=== PATIENT | female | born 1980 | race Hispanic/Latino ===

== ENCOUNTER 2018-12-07 23:13 | Emergency (ER) | payer MEDICAID, OTHER ==
--- NOTE | 2018-12-08 03:57 | Emergency Department Report ---
ED Psych HPI - General Chief Complaint: Psych Stated Complaint: PSYCH EVAL Time Seen by Provider: 12/08/18 03:40 Source: patient Mode of arrival: Ambulatory - History of Present Illness Initial Comments: Patient is 38 years old female with history of depression. Patient presented to the ER stating that she is very depressed and she has thoughts of hurting herself. Patient stated that she feel a lot she does not want to live anymore. Patient stated that R son brother who is 17 years old just committed suicide. Patient stated that she had history of suicidal attempt before slitting her wrist. Patient denied any homicidal ideation. No dictating or visual hallucination. MD Complaint: suicidal ideation, feels depressed -: days(s) Associated Psychiatric Symptoms: depression, suicidal ideation History of same: Yes Quality: constant Associated Symptoms: denies other symptoms Treatments Prior to Arrival: none If Self Harm: admits thoughts of - Related Data Previous Rx's Medication Instructions Recorded Last Taken Type Cyclobenzaprine [Flexeril] 10 mg PO TID PRN #15 tablet 04/10/16 Unknown Rx Ibuprofen [Motrin] 800 mg PO Q8HR PRN #15 tablet 04/10/16 Unknown Rx Allergies Allergy/AdvReac Type Severity Reaction Status Date / Time No Known Allergies Allergy Verified 04/09/16 17:50 ED Review of Systems ROS: Stated complaint: PSYCH EVAL Other details as noted in HPI Comment: All other systems reviewed and negative Constitutional: denies: chills, fever Respiratory: denies: cough, orthopnea, shortness of breath, SOB with exertion, SOB at rest Cardiovascular: denies: chest pain, palpitations Gastrointestinal: denies: abdominal pain, nausea Neurological: denies: headache, numbness, paresthesias, confusion Psychiatric: depression, suicidal thoughts. denies: auditory hallucinations, visual hallucinations, homicidal thoughts ED Past Medical Hx - Past Medical History Previous Medical History?: Yes Hx Hypertension: Yes - Surgical History Past Surgical History?: Yes Additional Surgical History: x1 - Social History Smoking Status: Never Smoker Substance Use Type: None - Medications Home Medications: Home Medications Medication Instructions Recorded Confirmed Last Taken Type Cyclobenzaprine [Flexeril] 10 mg PO TID PRN #15 tablet 04/10/16 Unknown Rx Ibuprofen [Motrin] 800 mg PO Q8HR PRN #15 tablet 04/10/16 Unknown Rx ED Physical Exam - General Limitations: No Limitations General appearance: alert, in no apparent distress, other (depressed) - Head Head exam: Present: atraumatic, normocephalic, normal inspection - Eye Eye exam: Present: normal appearance - ENT ENT exam: Present: normal exam, normal orophraynx, mucous membranes moist - Neck Neck exam: Present: normal inspection, full ROM. Absent: tenderness, menin gismus, lymphadenopathy, thyromegaly - Respiratory Respiratory exam: Present: normal lung sounds bilaterally - Cardiovascular Cardiovascular Exam: Present: regular rate, normal rhythm, normal heart sounds - GI/Abdominal GI/Abdominal exam: Present: soft, normal bowel sounds. Absent: distended, tenderness, guarding, rebound, rigid, organomegaly, mass, bruit, pulsatile mass, hernia - Extremities Exam Extremities exam: Present: normal inspection, full ROM, normal capillary refill - Back Exam Back exam: Present: normal inspection, full ROM. Absent: CVA tenderness (R), CVA tenderness (L), muscle spasm, paraspinal tenderness, vertebral tenderness - Neurological Exam Neurological exam: Present: alert, oriented X3, CN II-XII intact, normal gait - Psychiatric Psychiatric exam: Present: depressed, suicidal ideation. Absent: agitated, anxious, flat affect, manic, homicidal ideation - Skin Skin exam: Present: warm, intact, normal color ED Course Vital Signs 12/07/18 23:47 Temperature 98.6 F Pulse Rate 95 H Respiratory 18 Rate Blood Pressure 220/139 O2 Sat by Pulse 95 Oximetry Critical care attestation.: If time is entered above; I have spent that time in minutes in the direct care of this critically ill patient, excluding procedure time. ED Disposition Clinical Impression: Depression, Suicidal ideation Disposition: DC/TX-65 PSY HOSP/PSY UNIT Is pt being admited?: No Condition: Stable Referrals: PRIMARY CARE, [Primary Care Provider] - 3-5 Days
[2018-12-08 04:13] LABS: Basophils # (Auto) 0.1 K/mm3 (0.0-0.1); Basophils % (Auto) 0.9 % (0.0-1.8); Eosinophils # (Auto) 0.1 K/mm3 (0.0-0.4); Eosinophils % (Auto) 1.5 % (0.0-4.3); Hematocrit 30.6 % (30.3-42.9); Hemoglobin 9.3 gm/dl (10.1-14.3); Lymphocytes # (Auto) 2.6 K/mm3 (1.2-5.4); Lymphocytes % (Auto) 35.5 % (13.4-35.0); Mean Corpuscular HGB Conc 30 % (30-34); Monocytes # (Auto) 0.4 K/mm3 (0.0-0.8); Monocytes % (Auto) 5.5 % (0.0-7.3); Platelet Count 336 K/mm3 (140-440); Red Blood Count 4.37 M/mm3 (3.65-5.03); Red Cell Distribution Width 17.7 % (13.2-15.2)
[2018-12-08 04:14] LABS: Mean Corpuscular Volume 70 fl (79-97)
[2018-12-08 04:21] LABS: BUN/Creatinine Ratio 20; Blood Urea Nitrogen 12 mg/dL (7-17); Calcium 8.9 mg/dL (8.4-10.2); Hemolysis Index 3
[2018-12-08 05:39] LABS: Benzodiazepines Screen,Urine PRESUMPTIVE NEGATIVE; Cannabinoid Screen,Urine PRESUMPTIVE NEGATIVE; Cocaine Screen,Urine PRESUMPTIVE NEGATIVE; Methadone Screen,Urine PRESUMPTIVE NEGATIVE; Opiate Screen,Urine PRESUMPTIVE NEGATIVE
[2018-12-08 05:43] LABS: Bacteria,Urine 4+ /HPF (Negative); Bilirubin,Urine NEG (Negative); Blood,Urine MOD (Negative); Calcium Oxalate Crystals,Urine 3+; Color,Urine Amber (Yellow)
[2018-12-08 05:50] LABS: Amphetamine Screen,Urine PRESUMPTIVE POSITIVE
[2018-12-09] MEDS: NORVASC PO SCH (10:45)
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
[2018-12-09] MEDS: ZOLOFT PO SCH (14:00)
[2018-12-09] MEDS ORDERED: CATAPRES PO ONE (14:34)
[2018-12-10] MEDS: NORVASC PO SCH (09:32)
[2018-12-10] MEDS: ZOLOFT PO SCH (09:33)
[2018-12-10 11:02] LABS: Bacteria,Urine 4+ /HPF (Negative); Bilirubin,Urine NEG (Negative); Blood,Urine MOD (Negative); Color,Urine Yellow (Yellow); Protein,Urine <15 mg/dL mg/dL (Negative); Urobilinogen,Urine < 2.0 mg/dL (<2.0)
[2018-12-10 11:03] LABS: HCG Qualitative,Urine Negative (Negative); WBC,Urine > 182.0 /HPF (0.0-6.0)
--- NOTE | 2018-12-10 12:31 | Progress Note ---
Subjective - Reason for Consult Consult date: 12/10/18 Reason for consult: Psychiatric Follow-up Evaluation - Chief Complaint Chief complaint: "I'm fine." Patient is a 38 y.o. white female who presented to the ER for depression and suicidal ideations. Today the patient is calm and cooperative during the assessment. Patient is somewhat irritable due to wanting to discharge. She states, " I was depressed. I'm dealing with several deaths that have occurred in my family." She reports that her depressive symptoms are improving. She denies SI/HI's, A/VH's, and delusions. Mental Status Exam - Vital signs Last Vital Signs Temp 98.1 F 12/10/18 09:05 Pulse 98 H 12/10/18 10:24 Resp 18 12/10/18 10:24 BP 169/102 12/10/18 10:24 Pulse Ox 98 12/10/18 10:24 - Exam Narrative exam: Mental Status Exam: Appearance: calm, cooperative Behavior: regular eye contact Speech: regular rate with loud tone Mood:: "I'm fine"; depressed, irritable Affect: flat Thought Process: linear Thought Content: denies SI/HI's, AVH's, delusions Motor Activity: ambulatory Cognition: A/O x 3 Insight: variable to fair Judgment: variable Assessment and Plan Impression: MDD. PTSD. Substance Use DO (amphetamines). Today the patient is calm and cooperative the assessment. DDx: R/O Bipolar DO, Substance Induced Mood DO Recommendation/Plan: 1. Continue 1013. Reevaluate 1013 in 24 hours. 2. Continue Zoloft 50 mg PO daily for depression/PTSD. Discussed possible suicidality/medication induced yessy with the patient. Disposition: Once the patient is medically clear, proper disposition will be de termined. If patient's 1013 is rescinded patient will follow-up at the [facility]. Will staff with Dr. Chato Ventura.
[2018-12-10 14:57] VITALS: BP 148/88
[2018-12-10] MEDS ORDERED: KEFLEX PO ONE ×2 (16:31→17:00)
== END 2018-12-10 18:53 ==
LOC: EEVIPCON 23:13 → ED 23:13
DX: F32.9 Major depressive disorder, single episode, unspecified (principal); I10 Essential (primary) hypertension
CPT/HCPCS: 36415; 80048; 80307; 81001; 81025; 84702; 85025; 99285; G0480; 80320

== ENCOUNTER 2019-08-25 10:05 | Emergency (ER) | payer SELFPAY ==
--- NOTE | 2019-08-25 11:12 | XRay Report ---
RIGHT ANKLE 2 VIEWS INDICATION: trauma, pain. COMPARISON: None. IMPRESSION: Normal bone mineralization. No acute osseous findings or joint pathology is detected. M ild diffuse soft tissue swelling or edema is suspected. Signer Name: Evan Tatum Jr, MD Signed: 08/25/2019 11:07 AM Workstation Name: [id number]
--- NOTE | 2019-08-25 13:26 | Emergency Department Report ---
ED Extremity Problem HPI - General Chief complaint: Extremity Injury, Lower Stated complaint: RT ANKLE PAIN/HBP/DIZZY Time Seen by Provider: 08/25/19 13:22 Source: patient Mode of arrival: Ambulatory Limitations: No Limitations - History of Present Illness Initial comments: 39-year-old female presents to the emergency room for nontraumatic rig ht ankle pain and swelling for 3 weeks. Patient states that the pain shoots up her leg. Pain is intermittent and lasts a few minutes and go away. Pain is worse with walking. Nothing makes it better. Patient reports she's taken Tylenol last dose a few days ago. It was noted the patient has elevated blood pressure she reports she's been out of her blood pressure medicine for months. Patient reports she does not have a primary care provider. MD Complaint: extremity pain, extremity swelling Location: right, other (ankle) History of Same: No Radiation: distal Quality: other (shooting pain) Worsens with: walking Associated Symptoms: denies other symptoms - Related Data Previous Rx's Medication Instructions Recorded Last Taken Type Cyclobenzaprine [Flexeril] 10 mg PO TID PRN #15 tablet 04/10/16 Unknown Rx Ibuprofen [Motrin] 800 mg PO Q8HR PRN #15 tablet 04/10/16 Unknown Rx Lisinopril/Hydrochlorothiazide 1 each PO QDAY #20 tablet 08/25/19 Unknown Rx [Zestoretic 10-12.5 mg Tablet] amLODIPine 5 mg PO DAILY #20 tab 08/25/19 Unknown Rx Allergies Allergy/AdvReac Type Severity Reaction Status Date / Time No Known Allergies Allergy Verified 04/09/16 17:50 ED Review of Systems ROS: Stated complaint: RT ANKLE PAIN/HBP/DIZZY Other details as noted in HPI Comment: All other systems reviewed and negative ED Past Medical Hx - Past Medical History Previous Medical History?: Yes Hx Hypertension: Yes - Surgical History Past Surgical History?: Yes Additional Surgical History: x1 - Social History Smoking Status: Never Smoker Substance Use Type: None - Medications Home Medications: Home Medications Medication Instructions Recorded Confirmed Last Taken Type Cyclobenzaprine [Flexeril] 10 mg PO TID PRN #15 tablet 04/10/16 12/08/18 Unknown Rx Ibuprofen [Motrin] 800 mg PO Q8HR PRN #15 tablet 04/10/16 12/08/18 Unknown Rx Lisinopril/Hydrochlorothiazide 1 each PO QDAY #20 tablet 08/25/19 Unknown Rx [Zestoretic 10-12.5 mg Tablet] amLODIPine 5 mg PO DAILY #20 tab 08/25/19 Unknown Rx ED Physical Exam - General Limitations: No Limitations General appearance: alert, in no apparent distress - Head Head exam: Present: atraumatic, normocephalic - Eye Eye exam: Present: normal appearance - ENT ENT exam: Present: mucous membranes moist - Respiratory Respiratory exam: Present: normal lung sounds bilaterally. Absent: respiratory distress - Cardiovascular Cardiovascular Exam: Present: regular rate, normal rhythm. Absent: systolic murmur, diastolic murmur, rubs, gallop - Expanded Lower Extremity Exam Right Upper Leg exam: Present: normal inspection Knee exam: Present: normal inspection Lower Leg exam: Present: normal inspection Ankle exam: Present: full ROM, tenderness (lateral malleolus), swelling (lateral malleolus). Absent: ecchymosis, deformity, crepidus, dislocation, erythema, anterior draw sign Foot/Toe exam: Present: normal inspection, full ROM. Absent: tenderness, swelling Neuro vascular tendon exam: Present: no vascular compromise - Neurological Exam Neurological exam: Present: alert, oriented X3 - Psychiatric Psychiatric exam: Present: normal affect, normal mood - Skin Skin exam: Present: warm, dry, intact, normal color. Absent: rash ED Course Vital Signs 08/25/19 10:41 Temperature 98.6 F Pulse Rate 80 Respiratory 16 Rate Blood Pressure 190/125 [Right] O2 Sat by Pulse 99 Oximetry ED Medical Decision Making - Radiology Data Radiology results: report reviewed Patient: LOGAN URENA MR#: [id number] : 1980 Acct:[id number] Age/Sex: 39 / F ADM Date: 08/25/19 Loc: ED Attending Dr: Ordering Physician: SAMANTA KU MD Date of Service: 08/25/19 Procedure(s): XR ankle 2V RT Accession Number(s): [id number] cc: ED MD ELMIRA Fluoro Time In Minutes: RIGHT ANKLE 2 VIEWS INDICATION: trauma, pain. COMPARISON: None. IMPRESSION: Normal bone mineralization. No acute osseous findings or joint pathology is detected. Mild diffuse soft tissue swelling or edema is suspected. Signer Name: Evan Tatum Jr, MD Signed: 08/25/2019 11:07 AM Workstation Name: [id number] Transcribed By: TTR Dictated By: EVAN TATUM JR, MD Electronically Authenticated By: EVAN TATUM JR, MD Signed Date/Time: 08/25/191106 DD/ 06 TD/TT: - Medical Decision Making 39-year-old female presents to the emergency room for nontraumatic right ankle pain and swelling for 3 weeks. Patient states that the pain shoots up her leg. Pain is intermittent and lasts a few minutes and go away. Pain is worse with walking. Nothing makes it better. Patient reports she's taken Tylenol last dose a few days ago. It was noted the patient has elevated blood pressure she reports she's been out of her blood pressure medicine for months. Patient reports she does not have a primary care provider. [facility] x-rays were negative. Patient be placed on amlodipine and lisinopril for blood pressure. Patient be referred to her primary care provider. Patient verbalized understanding. Critical care attestation.: If time is entered above; I have spent that time in minutes in the direct care of this critically ill patient, excluding procedure time. ED Disposition Clinical Impression: Right ankle swelling, Hypertension Disposition: - TO HOME OR SELFCARE Is pt being admited?: No Does the pt Need Aspirin: No Condition: Stable Instructions: Hypertension (ED) Additional Instructions: Take medication as prescribed. Wear manoj wrap as demonstrated. Follow-up with her primary care provider for evaluation of your blood pressure. Prescriptions: amLODIPine 5 mg PO DAILY #20 tab Lisinopril/Hydrochlorothiazide [Zestoretic 10-12.5 mg Tablet] 1 each PO QDAY #20 tablet Referrals: GEORGE OSORIO MD [Primary Care Provider] - 3-5 Days MARY DAY MD [Staff Physician] - 3-5 Days [facility] [Provider Group] - 3-5 Days ALLISON SANCHEZ MD [Staff Physician] - 3-5 Days
[2019-08-25] MEDS ORDERED: cloNIDine 0.1 MG TAB PO ONE (14:07)
[2019-08-25] MEDS ORDERED: cloNIDine 0.1 MG TAB ONE (14:08)
[2019-08-25 15:01] VITALS: BP 178/112
== END 2019-08-25 15:00 | disposition home or self-care (01) ==
LOC: ED 10:05
DX: M25.471 Effusion, right ankle (principal); I10 Essential (primary) hypertension